=== PATIENT | male | born 1995 | race Two or more races ===

== ENCOUNTER 2025-01-25 16:33 | Inpatient (IN) | payer MEDICAID, OTHER ==
[~2025-01-25] VITALS: Ht 170.2 cm; Wt 75.2 kg
[2025-01-25 17:03] LABS: Hematocrit 47.3 % (41.0-53.0); Hemoglobin 16.7 g/dL (13.5-17.5); Mean Corpuscular Hemoglobin 32.5 pg (28.0-32.0); Mean Corpuscular Volume 91.8 fL (80.0-100.0); Nucleated Red Blood Cells % 0.0 %
--- NOTE | 2025-01-25 17:06 | ED.PDOC ---
Psychiatric HPI Comments HPI: 29 y/o M, YESSICA, presents to the ED for suspected suicide attempt. EMS reports, patient is coming from home where he reports drinking and half a bottle of rubbing alcohol between yesterday (01/24/25) and today (01/25/25) in an attempt to harm himself. Patient reports, having previous suicidal attempts in the past. Upon arrival to the ED, patient denies any thoughts or feelings of wanting to harm himself. Patient denies homicidal ideation, auditory hallucinations, or visual hallucinations. No other symptoms or modifying factors present at this time. Patient later however denies any suicidal ideation. Patient also states he took one or two pills of some medicine that he was prescribed but he does not know the name of. Poison control was contacted immediately. Initial Vitals BP: 142/85 HR:126 RR:16 O2: 97% Temp:98.6 Past Medical History: SELF HARM, DEPRESSION, ANXIETY Past Surgical History: DENIES ANY Social History: smoking, and drug use. Medications: DENIES ANY Allergies: NKA HPI: Poor Historian. REVIEW OF SYSTEMS: CONSTITUTIONAL: Denies acute: fever, diaphoresis, chills, HEAD: Denies acute: headache, photophobia Eyes: Denies acute: Double vision, vision loss, eye pain, eye discharge. EARS: Denies acute: tinnitus, hearing loss, ear discharge, ear pain, THROAT: Denies acute: sore throat, swelling, difficulty swallowing , pain with swallowing, change in voice. NECK: Denies acute: neck pain, neck swelling, stiff neck. HEART: Denies acute : chest pain, palpitations, LUNGS: Denies acute: SOB, wheezing, cough, hemoptysis ABDOMEN: Denies acute: abdominal pain, Nausea, Vomiting, diarrhea, melena , hematemesis, hematochezia SKIN: Denies acute: rash, redness, lesions, itchiness. EXTREMITIES: Denies acute: calf pain, numbness, tingling, weakness, denies pain in extremity. Denies acute: Low back pain. Neuro: Denies acute: focal neurological deficit, motor or sensory focal neurological deficit, tremors, seizure like activity, confusion, dizziness, change in mental status, loss of bowel or bladder function, cauda equina like symptoms. : Denies acute: dysuria, hematuria, flank pain, increase in urinary frequency. PSYCH: Denies acute: hallucination, suicidal ideation, homicidal ideation. FEMALE: Denies acute: abnormal vaginal bleeding, foul odor, unusual discharge. PHYSICAL EXAM: General: -----mild---acute distress, awake and alert. Head: normocephalic, atraumatic. Neck: supple, trachea is midline, no swelling. Throat: Normal phonation. Eyes:, no erythema, no purulent discharge, no proptosis, no icterus. Heart: regular tachycardia, no significant murmur appreciated. Lungs: no apparent respiratory distress, Able to speak in full sentences. No wheezing, no rhonchi, no crackles. No stridors Clear to auscultation bilaterally. Abdomen: non tender to palpation, non distended, soft, no guarding, no rebound, + bowel sounds. Neuro: Awake, Alert, oriented to name, self, situation, follows commands GCS=15. Speech is normal. Skin: no petechia, no purpura, no cyanosis, non-pale, not jaundice. Lower extremities: --no - Pitting edema no deformity, no focal swelling, no calf TTP. Makes eye contact. moves all four extremities. Face: no apparent facial droop. Ambulating in the ED independently. Ears: Normal appearing TM b/l, Stroke: finger to nose cerebellar testing is intact. No pronator drift. 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 Although this document has been carefully reviewed, there might still be some phonetic and typographical errors. Occasional wrong-word or "sound-alike" substitutions may have occurred due to the inherent limitations of voice recognition software. These areas are purely typographical due to imperfections of the software programs and do not reflect any compromise in the patient's medical care. Please read the chart carefully and recognize, using context, where these substitutions have occurred. Chief Complaint: Suicidal Time Seen by MD: 16:30 Reviewed Notes: Nurses Notes, Medications, Allergies Information Source: Patient Mode of Arrival: EMS Severity: Able to Care for Self Severity of Pain: None Severity of Mental Status: Moderate Severity of Symptoms: Moderate Timing: Days Duration: Since onset Prehospital treatment: None Presents with: Suicidal Ideation Attempt: Ingestion Ingestion: Intentional, ETOH Circumstance: None Current substance abuse: ETOH Stressors: None History of: Depression, Anxiety, Suicidal Attempt Quality: None Associated signs and symptoms: None Was a procedure done? Was a procedure done?: No Psych Differential Dx Psych. Differential Dx: Anxiety, Depression, Suicidal Suicidal Differential Dx: Alcohol Abuse, Anxiety, Bipolar Disorder, Conversion Disorder, Depression, Homicidal, Panic Disorder, Personality Disorder, Schizoprenia, Substance Abuse Intoxication Differential Dx: Alcohol Withdraw Syndrome, Delerium Tremens, Hallucinations, Seizures, Anticholinergic Poisoning, Drug-Induced Psychosis, Electrolyte Imbalance, Encephalopathy, Intoxication, Substance Abuse Disorder X-Ray, Labs, Meds, VS Vital Signs Date Time Temp Pulse Resp B/P (MAP) Pulse Ox O2 Delivery O2 Flow Rate FiO2 01/26/25 00:00 84 18 145/86 (105) 01/25/25 22:00 75 19 132/64 (86) 98 01/25/25 21:24 79 01/25/25 20:28 82 01/25/25 20:00 98.0 82 17 155/74 (101) 97 98.0 01/25/25 20:00 80 17 97 Room Air* 0 21 01/25/25 18:28 142 01/25/25 16:52 98.6 126 16 142/85 (104) 97 98.6 Lab Test 01/25/25 21:08 01/25/25 19:46 01/25/25 19:39 01/25/25 17:53 Range/Units Lactic Acid Level 1.2 2.7 *H 0.4-2.0 mmol/L White Blood Count 16.3 H 4.4-10.8 10^3/uL Red Blood Count 5.02 4.5-5.90 10^6/uL Hemoglobin 16.0 13.5-17.5 g/dL Hematocrit 45.9 41.0-53.0 % Mean Corpuscular Volume 91.5 80.0-100.0 fL Mean Corpuscular Hemoglobin 31.9 28.0-32.0 pg Mean Corpuscular Hemoglobin Concent 34.9 32.0-36.0 g/dL Red Cell Distribution Width 13.1 11.8-14.3 % Platelet Count 205 140-450 10^3/uL Mean Platelet Volume 7.6 6.9-10.8 fL Neutrophils (%) (Auto) 81.3 H 37.0-80.0 % Lymphocytes (%) (Auto) 14.3 10.0-50.0 % Monocytes (%) (Auto) 4.3 0.0-12.0 % Eosinophils (%) (Auto) 0.0 0.0-7.0 % Basophils (%) (Auto) 0.1 0.0-2.0 % Neutrophils # (Auto) 13.2 H 1.6-8.6 10 ^3/uL Lymphocytes # (Auto) 2.3 0.4-5.4 10 ^3/uL Monocytes # (Auto) 0.7 0-1.3 10 ^3/uL Eosinophils # (Auto) 0 0-0.8 10 ^3/uL Basophils # (Auto) 0 0-0.2 10 ^3/uL Nucleated Red Blood Cells 0.1 % Sodium Level 142 136-145 mmol/L Potassium Level 2.8 L 3.5-5.1 mmol/L Chloride Level 105 98-107 mmol/L Carbon Dioxide Level 26 20-31 mmol/L Anion Gap 11 5-15 Blood Urea Nitrogen 9 9-23 mg/dL Creatinine 1.33 H 0.700-1.30 mg/dL Glomerular Filtration Rate Calc 73 >90 mL/min BUN/Creatinine Ratio 6.8 L 10.0-20.0 Serum Glucose 114 H 74-106 mg/dL Calcium Level 9.2 8.7-10.4 mg/dL Total Bilirubin 0.8 0.2-1.0 mg/dL Aspartate Amino Transferase (AST) 24 13-40 U/L Alanine Aminotransferase (ALT) 26 7-40 U/L Alkaline Phosphatase 130 H 46-116 U/L Troponin I High Sensitivity 7 7 </=54 ng/L Total Protein 6.6 5.7-8.2 g/dL Albumin 4.1 3.2-4.8 g/dL Serum Osmolality 324 H 278-298 mOsm/kg Test 01/25/25 17:00 01/25/25 16:45 Range/Units Urine Color Yellow Yellow Urine Clarity Turbid H Clear Urine pH 6.0 5.0-9.0 Urine Specific [place] 1.033 1.001-1.035 Urine Protein 2+ H Negative Urine Ketones 1+ H Negative Urine Blood 3+ H Negative /uL Urine Nitrite Negative Negative Urine Bilirubin Negative Negative Urine Urobilinogen 3 H Negative mg/dL Urine Leukocyte Esterase Negative Negative /uL Urine RBC 74 0 - 3 /hpf Urine Microscopic WBC 1 0-3 /HPF Urine Squamous Epithelial Cells Few <5 /hpf Urine Amorphous Crystals Few None Seen /hpf Urine Bacteria None seen None Seen /hpf Urine Hyaline Casts Few 0 - 2 /lpf Urine Mucus Moderate None Seen Urine Glucose 1+ H Normal mg/dL Urine Opiates Screen Neg NEGATIVE Urine Fentanyl Screen Neg NEGATIVE Urine Barbiturates Screen Neg NEGATIVE Urine Phencyclidine Screen Neg NEGATIVE Urine Amphetamines Screen Neg NEGATIVE Urine Benzodiazepines Screen Neg NEGATIVE Urine Cocaine Screen Neg NEGATIVE Urine Cannabinoids Screen Pos NEGATIVE White Blood Count 15.1 H 4.4-10.8 10^3/uL Red Blood Count 5.15 4.5-5.90 10^6/uL Hemoglobin 16.7 13.5-17.5 g/dL Hematocrit 47.3 41.0-53.0 % Mean Corpuscular Volume 91.8 80.0-100.0 fL Mean Corpuscular Hemoglobin 32.5 H 28.0-32.0 pg Mean Corpuscular Hemoglobin Concent 35.4 32.0-36.0 g/dL Red Cell Distribution Width 13.1 11.8-14.3 % Platelet Count 208 140-450 10^3/uL Mean Platelet Volume 7.6 6.9-10.8 fL Neutrophils (%) (Auto) 83.7 H 37.0-80.0 % Lymphocytes (%) (Auto) 12.1 10.0-50.0 % Monocytes (%) (Auto) 4.0 0.0-12.0 % Eosinophils (%) (Auto) 0.0 0.0-7.0 % Basophils (%) (Auto) 0.2 0.0-2.0 % Neutrophils # (Auto) 12.7 H 1.6-8.6 10 ^3/uL Lymphocytes # (Auto) 1.8 0.4-5.4 10 ^3/uL Monocytes # (Auto) 0.6 0-1.3 10 ^3/uL Eosinophils # (Auto) 0 0-0.8 10 ^3/uL Basophils # (Auto) 0 0-0.2 10 ^3/uL Nucleated Red Blood Cells 0.0 % Sodium Level 142 136-145 mmol/L Potassium Level 2.9 L 3.5-5.1 mmol/L Chloride Level 101 98-107 mmol/L Carbon Dioxide Level 28 20-31 mmol/L Anion Gap 13 5-15 Blood Urea Nitrogen 13 9-23 mg/dL Creatinine 1.54 H 0.700-1.30 mg/dL Glomerular Filtration Rate Calc 61 >90 mL/min BUN/Creatinine Ratio 8.4 L 10.0-20.0 Serum Glucose 155 H 74-106 mg/dL Lactic Acid Level 4.4 *H 0.4-2.0 mmol/L Calcium Level 10.2 8.7-10.4 mg/dL Magnesium Level 2.0 1.6-2.6 mg/dL Total Bilirubin 0.6 0.2-1.0 mg/dL Aspartate Amino Transferase (AST) 28 13-40 U/L Alanine Aminotransferase (ALT) 30 7-40 U/L Alkaline Phosphatase 144 H 46-116 U/L Troponin I High Sensitivity 6 </=54 ng/L Total Protein 7.0 5.7-8.2 g/dL Albumin 4.4 3.2-4.8 g/dL Salicylates Level < 3.0 -30 mg/dL Acetaminophen Level < 2.0 L 10.0-20.0 UG/ML Plasma/Serum Blood Alcohol < 3.0 <10 mg/dL Microbiology Date/Time Source Procedure Growth Status 01/25/25 21:10 Blood Blood Culture - Preliminary NO GROWTH AFTER 48 HOURS OF INCUBATION. Resulted 01/25/25 21:08 Blood Blood Culture - Preliminary NO GROWTH AFTER 48 HOURS OF INCUBATION. Resulted [facility] [id number] [place] [address] Ph: [phone] DIAGNOSTIC IMAGING Diagnostic Imaging Report : [id number] Signed PATIENT: Cleveland Batres ACCT: [id number] UNIT: [id number] : 1995 LOC: ER ROOM / BED: / AGE / SEX: 29 / M ADM STATUS: REG ER SERVICE [id number] ORDERING PHYSICIAN: KEATON FOREMAN DO PROCEDURE(s): CXRP - CHEST PORTABLE REASON: suicide attempt, overdose ORDER NUMBER(s): [id number], ACCESSION NUMBER(s): [id number] CHEST RADIOGRAPH Indication: suicide attempt, overdose Technique: Single frontal view of the chest was obtained Comparison: None FINDINGS: Lines and Tubes: None Lungs: No focal consolidation. Questionable 11 mm nodule left lower lung field consider lateral chest x-ray may represent granuloma. Pleura: No effusion. No pneumothorax. Cardiomediastinal contours: Unremarkable Bones: No acute osseous abnormality. IMPRESSION: 1. Questionable 10-11 mm nodule retrocardiac area left lower lobe may represent granuloma. Consider lateral chest x-ray. ATED BY: MAMI PRINGLE Jr., DO DICTATED DATE/TIME: 01/25/251908 SIGNED BY: MAMI PRINGLE Jr., SIGNED DATE/TIME: 01/25/251908 CC: Time of 1ST Reevaluation: 17:00 Reevaluation 1ST: Unchanged Patient Education/Counseling: Diagnosis, Treatment Family Education/Counseling: No Family Present Comments Patient presented with the above HPI.--possible suicide attempt and toxic ingestion----workup was initiated. patient was found with the above mentioned diagnosis. the following medications were ordered: please refer to order lists of meds and tests obtained by myself Dr. Foreman. Patient ED course and VS have been stabilized. Patient has been reassessed in the ED and remained in a stable condition. Patient has been observed in the ED adequate length of time to insure impr ovement/stability. Escalation of care considered: Consideration of escalation to observation or admission Poison control was consulted initially and updated later with the findings. Poison control signed off on the patient. Despite fluid hydration patient continues to have leukocytosis of unknown etiology and did not look clinically stable. social staff worker and tele psych consult were placed. Patient was ADMITTED to the medicine team for further evaluation and treatment of their presentation. All the reports of any imaging studies that were ordered by myself were reviewed by myself. Departure 1 Departure Time of Disposition: 21:29 Impression: Primary Impression: Suicide attempt Additional Impressions: Toxic effect of rubbing alcohol Hypokalemia Leukocytosis Thyroid disease Disposition: ADMITTED INPATIENT Admit to: Tele Condition: Guarded e-Prescriptions Quetiapine Fumerate (Seroquel) 50 Mg Tab 1 TAB PO QPM for 30 Days, #30 TAB Prov: GURDEEP CORDOVA RESIDENT 01/27/25 Discharged With: Self Critical Care Note Critical Care Time?: Yes (55 min-critical care time only) I personally scribed for KEATON FOREMAN DO ([email or web address]) on 01/25/25 at 17:06. Electronically submitted by Catrina López ([email or web address]). I personally scribed for KEATON FOREMAN DO ([email or web address]) on 01/25/25 at 17:38. Electronically submitted by Catrina López ([email or web address]). I personally scribed for KEATON FOREMAN DO ([email or web address]) on 01/25/25 at 17:42. Electronically submitted by Catrina López ([email or web address]). I personally scribed for KEATON FOREMAN DO ([email or web address]) on 01/26/25 at 00:07. Electronically submitted by Otto Bates [email or web address]). KEATON FOREMAN DO Jan 25, 2025 17:06
[2025-01-25] MEDS: SODIUM CHLORIDE 0.9% 1,000 ML IV ONE ×3 (17:14→18:15)
[2025-01-25 17:20] LABS: Alanine Aminotransferase 30 U/L (7-40); Albumin 4.4 g/dL (3.2-4.8); Anion Gap 13 (5-15); BUN/Creatinine Ratio 8.4 (10.0-20.0); Bilirubin, Total 0.6 mg/dL (0.2-1.0); Blood Urea Nitrogen 13 mg/dL (9-23); Calcium 10.2 mg/dL (8.7-10.4); Carbon Dioxide 28 mmol/L (20-31); Chloride 101 mmol/L (98-107); Magnesium 2.0 mg/dL (1.6-2.6); Sodium 142 mmol/L (136-145); Total Protein 7.0 g/dL (5.7-8.2)
[2025-01-25 17:23] LABS: Alkaline Phosphatase 144 U/L (46-116); Glucose 155 mg/dL (74-106); Potassium 2.9 mmol/L (3.5-5.1)
[2025-01-25 17:25] LABS: Acetaminophen < 2.0 UG/ML (10.0-20.0); Salicylate < 3.0 mg/dL (-30)
[2025-01-25 17:33] LABS: Lactic Acid w/Reflex 4.4 mmol/L (0.4-2.0)
[2025-01-25 17:41] LABS: Amphetamine Screen, Urine Neg (NEGATIVE); Barbiturate Scree,Urine Neg (NEGATIVE); Benzodiazephine Screen, Urine Neg (NEGATIVE); Cannabinoid Screen, Urine Pos (NEGATIVE); Cocaine Screen, Urine Neg (NEGATIVE); Opiate Scree,Urine Neg (NEGATIVE); Phencyclidine Screen, Urine Neg (NEGATIVE); Urine Amorphous Crystal FEW /hpf (None Seen); Urine Protein, UAD 2+ (Negative)
--- NOTE | 2025-01-25 19:11 | DVH ---
CHEST RADIOGRAPH Indication: suicide attempt, overdose Technique: Single frontal view of the chest was obtained Comparison: None FINDINGS: Lines and Tubes: None Lungs: No focal consolidation. Questionable 11 mm nodule left lower lung field consider lateral chest x-ray may represent granuloma. Pleura: No effusion. No pneumothorax. Cardiomediastinal contours: Unremarkable Bones: No acute osseous abnormality. IMPRESSION: 1. Questionable 10-11 mm nodule retrocardiac area left lower lobe may represent granuloma. Consider l ateral chest x-ray.
--- NOTE | 2025-01-25 19:11 | ECG ---
[facility] Test Date: 2025-01-25 Test Time: 18:28:40 Pat Name: SUZANNA ABARCA Department: ED Room: 0219T Gender: M Associate: kadie : 1995 Requested By: KEATON FOREMAN Order Number: [id number] Reading MD: Loyd Mascorro Measurements Intervals [place] Rate: 142 P: 56 HI: 110 QRS: 94 QRSD: 100 T: -70 QT: 305 QTc: 469 Interpretive Statements Sinus tachycardia Borderline right axis deviation Abnormal T, consider ischemia, diffuse leads Borderline ST elevation, anterior leads Electronically Signed On 01-27-2025 19:03:56 PDT by Loyd Mascorro Please click the below link to view image of tracing.
[2025-01-25 19:58] LABS: Hematocrit 45.9 % (41.0-53.0); Hemoglobin 16.0 g/dL (13.5-17.5); Mean Corpuscular Hemoglobin 31.9 pg (28.0-32.0); Mean Corpuscular Volume 91.5 fL (80.0-100.0); Nucleated Red Blood Cells % 0.1 %
[2025-01-25 20:00] VITALS: PULSE 80; RESP 17; O2SAT 97
[2025-01-25 20:23] LABS: Alanine Aminotransferase 26 U/L (7-40); Albumin 4.1 g/dL (3.2-4.8); Anion Gap 11 (5-15); BUN/Creatinine Ratio 6.8 (10.0-20.0); Bilirubin, Total 0.8 mg/dL (0.2-1.0); Calcium 9.2 mg/dL (8.7-10.4); Carbon Dioxide 26 mmol/L (20-31); Chloride 105 mmol/L (98-107); Sodium 142 mmol/L (136-145); Total Protein 6.6 g/dL (5.7-8.2)
[2025-01-25 20:24] LABS: Alkaline Phosphatase 130 U/L (46-116); Blood Urea Nitrogen 9 mg/dL (9-23); Glucose 114 mg/dL (74-106); Potassium 2.8 mmol/L (3.5-5.1)
[2025-01-25] MEDS: cefTRIAXone 1GM/50ML D5W 50 ML IV ONE (21:08)
[2025-01-25] MEDS: POTASSIUM CHL 20 Meq TABLET PO ONE (22:07)
--- NOTE | 2025-01-26 01:31 | DVHHP2 ---
History of Present Illness History of Present Illness Patient is 29-year-old male with a past medical history of depression, anxiety was brought in by EMS due to suicidal attempt with the rubbing alcohol. As per patient and EMS record patient ingested rubbing alcohol on 01/24/25 and on 01/25/2025 in an attempt to hurt himself. As per patient he was feeling anxious and drank half of bottle of rubbing alcohol which could be around 500 mL but not sure. Patient reported he has been feeling depressed since his father 3 years before, feeling depressed, anhedonia, hopeless, helpless, insomnia. Keisha cantu had history of suicidal attempt in the past. On assessment patient denied hurting himself or other people at this moment but he feels hopeless and helpless and anhedonia. Initial lab workup revealed leukocytosis with WBC 15.1, potassium 2.9, serum creatinine 1.54, serum osmolality 324, blood sugar 114, alkaline phosphatase 130, AST ALT within normal limit, UDS positive for c annabinoids, urinalysis negative for UTI, chest x-ray -questionable 11 mm nodule in the retrocardiac area, left lower lobe granuloma. EKG sinus rhythm with QTC prolongation. Past Medical History none Past Social History Patient vapes, occasional alcoholic, use marijuana, lives with mom and grandma Review of Systems Review of Systems Allergy- NKDA Patient was seen today at the bedside. Cardiovascular- deny acute chest pain or shortness of breath or cough or palpitation Respiratory denies cough or short of breath or wheezing Gastrointestinal- denies any rectal bleeding, nausea or vomiting Musculoskeletal-denies acute joint swelling or tenderness or redness Neurological- denies acute dysarthria, dysphagia, change in vision Psychiatry- denies depression or SI or HI Skin- denies acute rash or purpura Allergies: Coded Allergies: NO KNOWN ALLERGIES (Unverified , 01/25/25) Medications Current Medications Medications Dose Ordered Sig/Nita Route Start Time Stop Time Status Last Admin Dose Admin Sodium Chloride 1,000 ml @ 120 mls/hr Q8H20M IV 01/26/25 01:30 UNV Pantoprazole Sodium 40 mg DAILY IV 01/26/25 10:00 UNV Exam Vital Signs Vital Signs Date Time Temp Pulse Resp B/P (MAP) Pulse Ox O2 Delivery O2 Flow Rate FiO2 01/25/25 22:00 75 19 132/64 (86) 98 01/25/25 20:00 98.0 98.0 01/25/25 20:00 Room Air* 0 21 Exam General examination- patient with expressionless face HEENT- PEERLA, no acute nasal discharge Cardiovascular- S1-S2 audible, rate and rhythm regular, no murmur Respiratory- CTAB, no wheeze or rhonchi Gastrointestinal-nontender, bowel sound+. Nondistended Musculoskeletal-no acute joint swelling or tenderness or redness Lower extremity- no leg edema Neurological- cranial nerves intact, no acute dysarthria or dysphagia Psychiatry- denies depression or SI or HI Skin- no acute rash or purpura Labs/Xrays Labs Test 01/25/25 21:08 01/25/25 19:39 01/25/25 17:53 01/25/25 17:00 Range/Units Lactic Acid Level 1.2 0.4-2.0 mmol/L White Blood Count 16.3 H 4.4-10.8 10^3/uL Red Blood Count 5.02 4.5-5.90 10^6/uL Hemoglobin 16.0 13.5-17.5 g/dL Hematocrit 45.9 41.0-53.0 % Mean Corpuscular Volume 91.5 80.0-100.0 fL Mean Corpuscular Hemoglobin 31.9 28.0-32.0 pg Mean Corpuscular Hemoglobin Concent 34.9 32.0-36.0 g/dL Red Cell Distribution Width 13.1 11.8-14.3 % Platelet Count 205 140-450 10^3/uL Mean Platelet Volume 7.6 6.9-10.8 fL Neutrophils (%) (Auto) 81.3 H 37.0-80.0 % Lymphocytes (%) (Auto) 14.3 10.0-50.0 % Monocytes (%) (Auto) 4.3 0.0-12.0 % Eosinophils (%) (Auto) 0.0 0.0-7.0 % Basophils (%) (Auto) 0.1 0.0-2.0 % Neutrophils # (Auto) 13.2 H 1.6-8.6 10 ^3/uL Lymphocytes # (Auto) 2.3 0.4-5.4 10 ^3/uL Monocytes # (Auto) 0.7 0-1.3 10 ^3/uL Eosinophils # (Auto) 0 0-0.8 10 ^3/uL Basophils # (Auto) 0 0-0.2 10 ^3/uL Nucleated Red Blood Cells 0.1 % Sodium Level 142 136-145 mmol/L Potassium Level 2.8 L 3.5-5.1 mmol/L Chloride Level 105 98-107 mmol/L Carbon Dioxide Level 26 20-31 mmol/L Anion Gap 11 5-15 Blood Urea Nitrogen 9 9-23 mg/dL Creatinine 1.33 H 0.700-1.30 mg/dL Glomerular Filtration Rate Calc 73 >90 mL/min BUN/Creatinine Ratio 6.8 L 10.0-20.0 Serum Glucose 114 H 74-106 mg/dL Calcium Level 9.2 8.7-10.4 mg/dL Total Bilirubin 0.8 0.2-1.0 mg/dL Aspartate Amino Transferase (AST) 24 13-40 U/L Alanine Aminotransferase (ALT) 26 7-40 U/L Alkaline Phosphatase 130 H 46-116 U/L Troponin I High Sensitivity 7 </=54 ng/L Total Protein 6.6 5.7-8.2 g/dL Albumin 4.1 3.2-4.8 g/dL Serum Osmolality 324 H 278-298 mOsm/kg Urine Color Yellow Yellow Urine Clarity Turbid H Clear Urine pH 6.0 5.0-9.0 Urine Specific [place] 1.033 1.001-1.035 Urine Protein 2+ H Negative Urine Ketones 1+ H Negative Urine Blood 3+ H Negative /uL Urine Nitrite Negative Negative Urine Bilirubin Negative Negative Urine Urobilinogen 3 H Negative mg/dL Urine Leukocyte Esterase Negative Negative /uL Urine RBC 74 0 - 3 /hpf Urine Microscopic WBC 1 0-3 /HPF Urine Squamous Epithelial Cells Few <5 /hpf Urine Amorphous Crystals Few None Seen /hpf Urine Bacteria None seen None Seen /hpf Urine Hyaline Casts Few 0 - 2 /lpf Urine Mucus Moderate None Seen Urine Glucose 1+ H Normal mg/dL Urine Opiates Screen Neg NEGATIVE Urine Fentanyl Screen Neg NEGATIVE Urine Barbiturates Screen Neg NEGATIVE Urine Phencyclidine Screen Neg NEGATIVE Urine Amphetamines Screen Neg NEGATIVE Urine Benzodiazepines Screen Neg NEGATIVE Urine Cocaine Screen Neg NEGATIVE Urine Cannabinoids Screen Pos NEGATIVE Test 01/25/25 16:45 Range/Units Magnesium Level 2.0 1.6-2.6 mg/dL Salicylates Level < 3.0 -30 mg/dL Acetaminophen Level < 2.0 L 10.0-20.0 UG/ML Plasma/Serum Blood Alcohol < 3.0 <10 mg/dL Assessment/Plan Assessment/Plan Assessment and plan # Suicidal attempt with ingestion of rubbing alcohol -Patient ingested rubbing alcohol twice in the past 2 days -patient alert, oriented, conversant,AAOX4 -serum osmolality 324 -continue IV normal saline as prescribed -pending tele psych consult # GRACIELA likely due to VMN -continue IV normal saline as prescribed -monitor BMP Pending urine sodium, urine creatinine, urine protein creatinine ratio # isopropyl alcohol intoxication/rubbing alcohol intoxication -continue IV normal saline as prescribed -monitor CMP, serum osmolality #Lactic acidosis likely due to isopropyl alcohol ingestion -monitor serum osmolality -continue IV normal saline as prescribed -monitor BMP # hypokalemia -supplemented -monitor BMP # hyper osmolality-likely due to isopropyl alcohol toxicity -continue IV normal saline as prescribed -monitor serum osmolality # depression, Anxiety -continue citalopram as prescribed -pending tele psych consult # substance abuse cannabinoids -UDS positive for cannabinoids -patient was counseled about the effect of substance abuse on health # questionable 11 mm nodule in the retrocardiac area -outpatient follow up with the primary care physician # questionable left lower lobe granuloma -outpatient follow up with the primary care physician Diet-NPO Goals of care, Code status Full code ; discussed with >15 minutes PUD prophylaxis: Pantoprazole DVT prophylaxis: Patient ambulating Plan discussed with Dr. Sierra , nursing staff, Total time spent on patient evaluation, chart review, assessment and plan, discussion discussion >35 minutes Plan discussed with: Patient, Other (RN) My Orders Orders - ARISTIDES PAYTON RESIDENT Procedure Category Date Status Time Admit ADMIT 01/26/25 Transmitted 01:26 Code Status CODE 01/26/25 Transmitted 01:26 Sodium Chloride 0.9% PHA 01/26/25 Logged 01:30 Complete Blood Count LAB 01/27/25 Verified 04:00 Comprehensive LAB 01/27/25 Verified Metabolic Panel 04:00 Npo (Nothing By DIET 01/26/25 Transmitted Mouth) Diet Breakfast Notify Of Changes ALFREDA 01/26/25 In Process From Base 01:26 Crm Solution Architect For ALFREDA 01/26/25 In Process 24 Hours 01:26 Pantoprazole PHA 01/26/25 Logged (Protonix) 01:30 Pantoprazole PHA 01/26/25 Logged (Protonix) 10:00 *Tele Psych Consult CONS 01/26/25 Verified 01:29 Date of Service: Jan 26, 2025 Billing Provider: SAMRA SIERRA MD Common Visit Codes: 90126-ZUXSVGB INP/OBS CARE (HIGH) Secondary Visit Codes: 40295-[id number] CARE PLAN 30 MINUTES ARISTIDES APYTON RESIDENT Jan 26, 2025 01:31
[2025-01-26] MEDS: POTASSIUM CHL 20MEQ/100ML 100 ML IV SCH (02:15)
[2025-01-26] MEDS: CITALOPRAM HYDROBR 20 MG TAB PO ONE (03:44)
[2025-01-26] MEDS: SODIUM CHLORIDE 0.9% 1,000 ML IV SCH (03:44)
[2025-01-26] MEDS: PANTOPRAZOLE 40 MG/10 ML VIAL INJ IV ONE (03:45)
--- NOTE | 2025-01-26 05:47 | ECG ---
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
[2025-01-26] MEDS: POTASSIUM EFFERVESENT TAB 25 MEQ GT ONE (06:50)
[2025-01-26 07:08] LABS: Calcium 9.6 mg/dL (8.7-10.4); Chloride 106 mmol/L (98-107); Potassium 3.6 mmol/L (3.5-5.1); Sodium 144 mmol/L (136-145)
[2025-01-26 07:09] LABS: Anion Gap 8 (5-15); Carbon Dioxide 30 mmol/L (20-31)
[2025-01-26 07:14] LABS: BUN/Creatinine Ratio 6.3 (10.0-20.0); Glucose 88 mg/dL (74-106)
[2025-01-26 07:15] LABS: Magnesium 2.1 mg/dL (1.6-2.6)
[2025-01-26 07:18] LABS: Blood Urea Nitrogen 8 mg/dL (9-23)
[2025-01-26 08:00] VITALS: PULSE 72; RESP 18; O2SAT 99
[2025-01-26] MEDS: CITALOPRAM HYDROBR 20 MG TAB PO SCH (11:28)
[2025-01-26] MEDS: PANTOPRAZOLE 40 MG/10 ML VIAL INJ IV SCH (11:29)
--- NOTE | 2025-01-26 16:25 | DVHPNRES ---
Progress Note Date Seen: Jan 26, 2025 Resident Creating Document: DORA LU RESIDENT Has the PT tested + for MRSA If YES, has PT been informed?: No Medical Necessity Reason Pt with a Central, PICC or Fol: No Subjective Review of Systems Patient is a 29-year-old male with prior history of depression and anxiety who presented to the ED via EMS with chief complaint of altered mental status secondary to ingestion of isopropyl alcohol. Patient states that he was drinking with friends for 2 days when they ran out of alcohol and drank approximately half a 1 L bottle of isopropyl alcohol over a 2 day period aiming to get intoxicated. Patient states that last night began to present dizziness, an episode of bloody vomit, and abdominal pain in the epigastrium described as sharp, intensity of 6/10, with no aggravating no relieving factors. He denied persistent vomiting, chest pain, palpitation, fever, chills, diarrhea, and bloody stools. Additionally, patient denied attempt to hurt himself, attempts at suicide, or suicidal ideation. Labs reveal CBCs at 15.1, lactic acid 4.4, potassium 2.9, serum creatinine at 1.54 , serum osmolality at 324, serum alcohol level <3, blood sugar 114, alkaline phosphatase 130, AST and ALT within normal limits, and urine tox screen positive for cannabinoids. 12 lead EKG performed in ED significant for prolongation of QTC, troponins negative. Chest x-ray reveals questionable 10-11 mm nodule in retrocardiac area left lower lobe which may represent granuloma. Patient started on IV fluids and IV potassium and was admitted for further workup and monitoring. Patient seen at bedside. Patient states that he has nausea, abdominal pain, and back pain. Denies further episodes of vomiting. Patient reiterates no intention of harming himself, nor committing suicide. Additionally states that prior to the current binge, he was sober for few months. On exam, patient presents pain to palpation in the epigastrium. Follow-up labs WBCs 16.3, potassium 3.6, lactic acid 1.2, Creatinine 1.26, osmolarity 330, AST and ALT still within normal range, and alkaline phosphatase 144. Patient will continue on IV fluids and will be monitored for symptoms of alcohol withdrawal. Currently pending tele psych consultation. Review of systems: Constitutional: Denies weight loss, fever and chills. HEENT: Denies changes in vision and hearing. Respiratory: Denies shortness of breath and cough Cardiovascular: Denies chest discomfort or palpitations GI: Refers abdominal pain Denies abdominal distention, diarrhea : Denies dysuria and urinary frequency. Musculoskeletal: Reports back pain Skin: Denies rash and pruritus. Neurological: Refers dizziness, denies headache vision or hearing problems Objective vital signs Vital Sign Date Time Temp Pulse Resp B/P (MAP) Pulse Ox O2 Delivery O2 Flow Rate FiO2 01/26/25 12:30 70 18 129/75 (93) 99 01/26/25 08:00 Room Air* 0 21 01/26/25 08:00 98.0 98.0 Total Intake and Output 01/25/25 01/25/25 01/26/25 15:00 23:00 07:00 Intake Total 2050 ml Balance 2050 ml medications Current Medications Medications Dose Ordered Sig/Nita Route Start Time Stop Time Status Last Admin Dose Admin Sodium Chloride 1,000 ml @ 120 mls/hr Q8H20M IV 01/26/25 01:30 01/26/25 11:29 120 MLS/HR Pantoprazole Sodium 40 mg DAILY IV 01/26/25 10:00 01/26/25 11:29 40 MG Citalopram Hydrobromide 40 mg DAILY PO 01/26/25 10:00 01/26/25 11:28 40 MG Examination General: The patient alert and oriented in person place and time. Patient following commands HEENT: Normocephalic, atraumatic, moist mucous membrane Respiratory/pulmonary: Clear lungs bilaterally, vesicular murmurs present in almost all lung flood, no associated crackles or wheezes. Abdomen: Abdomen nondistended, pain to palpation in epigastrium, no palpable masses. Extremities: there is no peripheral edema present at the lower extremities. Peripheral pulses 3+ radial right, 3+ radials soft. 3+ dorsalis pedis right. 3+ dorsalis pedis left Skin: No rashes or pruritus Neurological: Intact cranial nerves with no focal neurologic deficits laboratory and microbiology Laboratory Tests 01/26/25 06:32 01/25/25 19:39 Test 01/26/25 06:32 Range/Units Serum Glucose 88 74-106 mg/dL Problem List/Assessment/Plan Problem List/Assessment/Plan Assessment and plan: Acute toxic metabolic encephalopathy, likely due to isopropyl alcohol ingestion Intoxication due to isopropyl alcohol Lactic acidosis secondary to isopropyl alcohol ingestion Leukocytosis likely reactive -IV fluids -Telepsych consult -patient denies suicide attempt GRACIELA likely due to VMN -IV fluids Hypokalemia, 2.9 -potassium IV -potassium p.o. 25 mEq Depression, anxiety -Citalopram p.o. 40 mg 10-11 mm nodule and retrocardiac area, possible granuloma -incidental finding Patient will be taken off NPO, will be started on clear liquid diet. GI prophylaxis: Protonix IV 40 mg Case discussed with Dr. Diaz. Goals of care discussed with patient for 15 minutes, who states he understands and agrees. Plan discussed with: Patient DORA LU RESIDENT Jan 26, 2025 16:25
[2025-01-26 19:43] VITALS: BP 136/75; PULSE 54; PULSE 56; RESP 18; TEMP 97.8; O2SAT 100; O2SAT 95
[2025-01-26 20:00] VITALS: PULSE 56; PULSE 58; RESP 18; O2SAT 95
[2025-01-26] MEDS ORDERED: ESCI20TA PO (20:46)
[2025-01-26 21:00] VITALS: BP 137/72; PULSE 58; RESP 18; TEMP 97.8; O2SAT 96
[2025-01-26 21:36] LABS: Protein, Urine 15.5 mg/dL (1-14)
[2025-01-27] MEDS: ACETAMINOPHEN 325 MG TAB PO PRN (00:04)
[2025-01-27 05:00] VITALS: BP 130/77; PULSE 54; RESP 18; TEMP 98.7; O2SAT 98
[2025-01-27 07:13] LABS: Alanine Aminotransferase 33 U/L (7-40); Albumin 3.7 g/dL (3.2-4.8); Alkaline Phosphatase 107 U/L (46-116); Anion Gap 7 (5-15); BUN/Creatinine Ratio 7.5 (10.0-20.0); Bilirubin, Total 1.0 mg/dL (0.2-1.0); Blood Urea Nitrogen 9 mg/dL (9-23); Calcium 9.5 mg/dL (8.7-10.4); Carbon Dioxide 28 mmol/L (20-31); Chloride 107 mmol/L (98-107); Glucose 77 mg/dL (74-106); Potassium 3.7 mmol/L (3.5-5.1); Sodium 142 mmol/L (136-145); Total Protein 6.0 g/dL (5.7-8.2)
[2025-01-27 07:49] LABS: Hematocrit 39.3 % (41.0-53.0); Hemoglobin 14.1 g/dL (13.5-17.5); Mean Corpuscular Hemoglobin 32.9 pg (28.0-32.0); Mean Corpuscular Volume 91.8 fL (80.0-100.0); Nucleated Red Blood Cells % 0.1 %
[2025-01-27 08:00] VITALS: PULSE 65
[2025-01-27 09:00] VITALS: BP 134/67; PULSE 67; RESP 18; TEMP 98; O2SAT 99
--- NOTE | 2025-01-27 12:06 | ECG ---
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
[2025-01-27 13:00] VITALS: BP 146/89; PULSE 78; RESP 18; TEMP 97.9; O2SAT 98
--- NOTE | 2025-01-27 14:27 | DVHINCON2 ---
Date of Service if different f: Jan 27, 2025 Consultation ([place]) Labs Laboratory Tests Test 01/25/25 16:45 01/25/25 17:00 01/25/25 21:08 01/26/25 06:32 Salicylates Level < 3.0 mg/dL (-30) Acetaminophen Level < 2.0 UG/ML (10.0-20.0) Plasma/Serum Blood Alcohol < 3.0 mg/dL (<10) Urine Color Yellow (Yellow) Urine Clarity Turbid (Clear) Urine pH 6.0 (5.0-9.0) Urine Specific [place] 1.033 (1.001-1.035) Urine Protein 2+ (Negative) Urine Ketones 1+ (Negative) Urine Blood 3+ /uL (Negative) Urine Nitrite Negative (Negative) Urine Bilirubin Negative (Negative) Urine Urobilinogen 3 mg/dL (Negative) Urine Leukocyte Esterase Negative /uL (Negative) Urine RBC 74 /hpf (0 - 3) Urine Microscopic WBC 1 /HPF (0-3) Urine Squamous Epithelial Cells Few /hpf (<5) Urine Amorphous Crystals Few /hpf (None Seen) Urine Bacteria None seen /hpf (None Seen) Urine Hyaline Casts Few /lpf (0 - 2) Urine Mucus Moderate (None Seen) Urine Glucose 1+ mg/dL (Normal) Urine Opiates Screen Neg (NEGATIVE) Urine Fentanyl Screen Neg (NEGATIVE) Urine Barbiturates Screen Neg (NEGATIVE) Urine Phencyclidine Screen Neg (NEGATIVE) Urine Amphetamines Screen Neg (NEGATIVE) Urine Benzodiazepines Screen Neg (NEGATIVE) Urine Cocaine Screen Neg (NEGATIVE) Urine Cannabinoids Screen Pos (NEGATIVE) Lactic Acid Level 1.2 mmol/L (0.4-2.0) Hemoglobin A1c 4.9 % A1C (<5.7) Serum Osmolality 330 mOsm/kg (278-298) Magnesium Level 2.1 mg/dL (1.6-2.6) Vitamin B12 Level 450 pg/mL (211-911) Vitamin D 25-Hydroxy 49.6 ng/mL (30.0-100) Folic Acid (LAB) 7.91 ng/mL (>5.38) Test 01/26/25 07:40 01/26/25 08:05 01/26/25 21:00 01/27/25 05:55 Troponin I High Sensitivity 10 ng/L (</=54) Thyroid Stimulating Hormone (TSH) 0.15 uIU/mL (0.55-4.78) Urine Creatinine 58.23 mg/dL (30.0-125.0) Urine Protein/Creatinine Ratio 0.27 Urine Sodium 207 mmol/L (40-220) Urine Total Protein 15.5 mg/dL (1-14) White Blood Count 7.4 10^3/uL (4.4-10.8) Red Blood Count 4.28 10^6/uL (4.5-5.90) Hemoglobin 14.1 g/dL (13.5-17.5) Hematocrit 39.3 % (41.0-53.0) Mean Corpuscular Volume 91.8 fL (80.0-100.0) Mean Corpuscular Hemoglobin 32.9 pg (28.0-32.0) Mean Corpuscular Hemoglobin Concent 35.8 g/dL (32.0-36.0) Red Cell Distribution Width 13.1 % (11.8-14.3) Platelet Count 132 10^3/uL (140-450) Mean Platelet Volume 8.1 fL (6.9-10.8) Neutrophils (%) (Auto) 59.0 % (37.0-80.0) Lymphocytes (%) (Auto) 34.8 % (10.0-50.0) Monocytes (%) (Auto) 5.5 % (0.0-12.0) Eosinophils (%) (Auto) 0.3 % (0.0-7.0) Basophils (%) (Auto) 0.4 % (0.0-2.0) Neutrophils # (Auto) 4.3 10 ^3/uL (1.6-8.6) Lymphocytes # (Auto) 2.6 10 ^3/uL (0.4-5.4) Monocytes # (Auto) 0.4 10 ^3/uL (0-1.3) Eosinophils # (Auto) 0 10 ^3/uL (0-0.8) Basophils # (Auto) 0 10 ^3/uL (0-0.2) Nucleated Red Blood Cells 0.1 % Sodium Level 142 mmol/L (136-145) Potassium Level 3.7 mmol/L (3.5-5.1) Chloride Level 107 mmol/L (98-107) Carbon Dioxide Level 28 mmol/L (20-31) Anion Gap 7 (5-15) Blood Urea Nitrogen 9 mg/dL (9-23) Creatinine 1.20 mg/dL (0.700-1.30) Glomerular Filtration Rate Calc 83 mL/min (>90) BUN/Creatinine Ratio 7.5 (10.0-20.0) Serum Glucose 77 mg/dL (74-106) Calcium Level 9.5 mg/dL (8.7-10.4) Total Bilirubin 1.0 mg/dL (0.2-1.0) Aspartate Amino Transf (AST/SGOT) 36 U/L (13-40) Alanine Aminotransferase (ALT/SGPT) 33 U/L (7-40) Alkaline Phosphatase 107 U/L (46-116) Total Protein 6.0 g/dL (5.7-8.2) Albumin 3.7 g/dL (3.2-4.8) Microbiology Date/Time Source Procedure Growth Status 01/25/25 21:10 Blood Blood Culture - Preliminary NO GROWTH AFTER 24 HOURS OF INCUBATION. Resulted Side effects of medications: No Appearance: Stated age, Disheveled Psychomotor activity: Lethargic Behavioral: Cooperative Eye contact: Avoids Speech: Soft Affect: Flat Mood: Neutral Thought processes: Linear/Goal-directed Thought content: WNL Suicidal ideations: Absent Homicidal ideations: Absent Orientation: Person, Place, Time, Situation Memory intact: Recent Intellect: Average Abstractability: WNL Concentration: Adequate Attention: Adequate Judgement: WNL Insight: Poor Vitals Vital Signs Date Time Temp Pulse Resp B/P (MAP) Pulse Ox O2 Delivery O2 Flow Rate FiO2 01/27/25 08:00 Room Air* 0 21 01/27/25 05:00 98.7 54 18 130/77 (94) 98 98.7 Current medications Current Medications Medications Dose Ordered Sig/Nita Route Start Time Stop Time Status Last Admin Dose Admin Sodium Chloride 1,000 ml @ 120 mls/hr Q8H20M IV 01/26/25 01:30 01/27/25 10:31 120 MLS/HR Pantoprazole Sodium 40 mg DAILY IV 01/26/25 10:00 01/27/25 10:25 40 MG Citalopram Hydrobromide 40 mg DAILY PO 01/26/25 10:00 01/27/25 10:26 40 MG Acetaminophen 650 mg Q6HP PRN PO 01/26/25 23:15 01/27/25 00:04 650 MG Medication adjusted: No Diagnosis: MDD, unspecified anxiety, alcohol abuse disorder Plan : This is a 29-year-old male with hx of depression, anxiety and alcohol abuse, presents here after drinking isopropyl alcohol Patient presently denies suicidal/homicidal ideation. He would benefit from outpatient follow up for medication management and therapy. Continue current psychotropic medications recommend to add seroquel 50mg po qhs for psychotic symptoms History of Present Illness Reason for Consult : psychiatric evaluation and history of depression and anxiety HPI : This is a 29-year-old male present here from home via ambulance after ingesting isopropyl alcohol. Patient is evaluated via telepsychiatry. He reports hx of depression, anxiety and alcohol abuse. He reports alcohol abuse for over 10 years but sober for 6months. he reports his friends picked him up and he stayed with them for about one week and they were drinking a lot of alcohol after being sober 6 months. He reports they ran out of alcohol and he began drinking rubbing alcohol x2 days. He denies suicide attempt. He reports drinking the rubbing alcohol, about 1/2 bottle because he was having a lot of anxiety and trying to "block anxiety." He denies prior use of rubbing alcohol. He presents with flat affect, but denies feeling depressed, anhedonia or hopelessness. He reports poor sleep. Appetite varies. He reports having a lot of neck, chest pain, and feeling uncomfortable. He denies suicidal/homicidal ideation. He reports auditory visual hallucinations with withdrawals symptoms in the past. He denies paranoia. Past Psychiatric History : He denies prior psych admissions or holds. He denies prior suicide attempts. He reports hx of cutting in middle school only. He denies current outpatient follow up. He reports use of escitalopram 20mg prescribed by his PCP. He denies use for about one week while visiting his friends. He reports, in the past, was helpful for his symptoms. Past Medical History : He denies Social History : He lives with family, mom, grandmother, and brother. he is employed at [employer]. He reports father and mother with hx of depression and anxiety. He reports alcohol abuse history. he reports use of marijuana daily. He denies other substance use. RC MARINA DNP Jan 27, 2025 14:27
[2025-01-27 16:39] VITALS: BP 119/76; PULSE 55; RESP 18; TEMP 98.1; O2SAT 100
[2025-01-27] MEDS ORDERED: QUET50TA PO (18:22)
--- NOTE | 2025-01-27 18:30 | DVHDSRES ---
Discharge Summary Date of Admission Resident Creating Document: DORA LU RESIDENT Jan 26, 2025 at 01:26 Date of Discharge: Jan 27, 2025 Admitting Diagnosis Acute toxic metabolic encephalopathy secondary to ingestion of isopropyl alcohol Labs/Diagnostic Data: Laboratory Results Test 01/27/25 05:55 01/26/25 21:00 01/26/25 08:05 01/26/25 07:40 White Blood Count 7.4 10^3/uL (4.4-10.8) Red Blood Count 4.28 10^6/uL (4.5-5.90) Hemoglobin 14.1 g/dL (13.5-17.5) Hematocrit 39.3 % (41.0-53.0) Mean Corpuscular Volume 91.8 fL (80.0-100.0) Mean Corpuscular Hemoglobin 32.9 pg (28.0-32.0) Mean Corpuscular Hemoglobin Concent 35.8 g/dL (32.0-36.0) Red Cell Distribution Width 13.1 % (11.8-14.3) Platelet Count 132 10^3/uL (140-450) Mean Platelet Volume 8.1 fL (6.9-10.8) Neutrophils (%) (Auto) 59.0 % (37.0-80.0) Lymphocytes (%) (Auto) 34.8 % (10.0-50.0) Monocytes (%) (Auto) 5.5 % (0.0-12.0) Eosinophils (%) (Auto) 0.3 % (0.0-7.0) Basophils (%) (Auto) 0.4 % (0.0-2.0) Neutrophils # (Auto) 4.3 10 ^3/uL (1.6-8.6) Lymphocytes # (Auto) 2.6 10 ^3/uL (0.4-5.4) Monocytes # (Auto) 0.4 10 ^3/uL (0-1.3) Eosinophils # (Auto) 0 10 ^3/uL (0-0.8) Basophils # (Auto) 0 10 ^3/uL (0-0.2) Nucleated Red Blood Cells 0.1 % Sodium Level 142 mmol/L (136-145) Potassium Level 3.7 mmol/L (3.5-5.1) Chloride Level 107 mmol/L (98-107) Carbon Dioxide Level 28 mmol/L (20-31) Anion Gap 7 (5-15) Blood Urea Nitrogen 9 mg/dL (9-23) Creatinine 1.20 mg/dL (0.700-1.30) Glomerular Filtration Rate Calc 83 mL/min (>90) BUN/Creatinine Ratio 7.5 (10.0-20.0) Serum Glucose 77 mg/dL (74-106) Calcium Level 9.5 mg/dL (8.7-10.4) Total Bilirubin 1.0 mg/dL (0.2-1.0) Aspartate Amino Transferase (AST) 36 U/L (13-40) Alanine Aminotransferase (ALT) 33 U/L (7-40) Alkaline Phosphatase 107 U/L (46-116) Total Protein 6.0 g/dL (5.7-8.2) Albumin 3.7 g/dL (3.2-4.8) Urine Creatinine 58.23 mg/dL (30.0-125.0) Urine Protein/Creatinine Ratio 0.27 Urine Sodium 207 mmol/L (40-220) Urine Total Protein 15.5 mg/dL (1-14) Thyroid Stimulating Hormone (TSH) 0.15 uIU/mL (0.55-4.78) Troponin I High Sensitivity 10 ng/L (</=54) Test 01/26/25 06:32 01/25/25 21:08 01/25/25 17:00 01/25/25 16:45 Hemoglobin A1c 4.9 % A1C (<5.7) Serum Osmolality 330 mOsm/kg (278-298) Magnesium Level 2.1 mg/dL (1.6-2.6) Vitamin B12 Level 450 pg/mL (211-911) Vitamin D 25-Hydroxy 49.6 ng/mL (30.0-100) Folic Acid 7.91 ng/mL (>5.38) Lactic Acid Level 1.2 mmol/L (0.4-2.0) Urine Color Yellow (Yellow) Urine Clarity Turbid (Clear) Urine pH 6.0 (5.0-9.0) Urine Specific [place] 1.033 (1.001-1.035) Urine Protein 2+ (Negative) Urine Ketones 1+ (Negative) Urine Blood 3+ /uL (Negative) Urine Nitrite Negative (Negative) Urine Bilirubin Negative (Negative) Urine Urobilinogen 3 mg/dL (Negative) Urine Leukocyte Esterase Negative /uL (Negative) Urine RBC 74 /hpf (0 - 3) Urine Microscopic WBC 1 /HPF (0-3) Urine Squamous Epithelial Cells Few /hpf (<5) Urine Amorphous Crystals Few /hpf (None Seen) Urine Bacteria None seen /hpf (None Seen) Urine Hyaline Casts Few /lpf (0 - 2) Urine Mucus Moderate (None Seen) Urine Glucose 1+ mg/dL (Normal) Urine Opiates Screen Neg (NEGATIVE) Urine Fentanyl Screen Neg (NEGATIVE) Urine Barbiturates Screen Neg (NEGATIVE) Urine Phencyclidine Screen Neg (NEGATIVE) Urine Amphetamines Screen Neg (NEGATIVE) Urine Benzodiazepines Screen Neg (NEGATIVE) Urine Cocaine Screen Neg (NEGATIVE) Urine Cannabinoids Screen Pos (NEGATIVE) Salicylates Level < 3.0 mg/dL (-30) Acetaminophen Level < 2.0 UG/ML (10.0-20.0) Plasma/Serum Blood Alcohol < 3.0 mg/dL (<10) Other Laboratory Tests 01/27/25 05:55 Brief Hx & Hospital Course: Patient is a 29-year-old male with prior history of depression, anxiety, and alcoholism with intermittent sobriety who presented to the ED via EMS with chief complaint of altered mental status secondary to ingestion of isopropyl alcohol. Patient states that he was drinking with friends for 2 days when they ran out of alcohol and drank approximately half a 1 L bottle of isopropyl alcohol over a 2 day period aiming to get intoxicated. Patient stated that on the night of presentation he began to present dizziness, an episode of bloody vomit, and abdominal pain in the epigastrium described as sharp, intensity of 6/10, with no aggravating no relieving factors. He denied persistent vomiting, chest pain, palpitation, fever, chills, diarrhea, and bloody stools. Additionally, patient denied attempt to hurt himself, attempts at suicide, or suicidal ideation. Labs revealed WBCs at 15.1, lactic acid 4.4, potassium 2.9, serum creatinine at 1.54 , serum osmolality at 324, serum alcohol level <3, blood sugar 114, alkaline phosphatase 130, AST and ALT within normal limits, and urine tox screen positive for cannabinoids. 12 lead EKG performed in ED significant for prolongation of QTC, troponins negative. Chest x-ray revealed questionable 10-11 mm nodule in retrocardiac area left lower lobe which may represent granuloma. Patient started on IV fluids and IV potassium and was admitted for further workup and monitoring for symptoms of alcohol withdrawal. On evaluation, after admission patient stated he was nauseous, refering persistence of abdominal pain and back pain, but denied further emetic episodes. On physical examination, patient smelled of isopropyl alcohol and presented pain on palpation of epigastrium. Patient reiterated he had no intention of harming himself, nor committing suicide. Follow-up labs showed WBCs 16.3, potassium 3.6, lactic acid 1.2, Creatinine 1.26, osmolarity 330, AST and ALT still within normal range, and alkaline phosphatase 144. On evaluation today, patient stated he felt better, had improvements in nausea and abdominal pain. Referred back pain, however stated that this was due to a previous injury. CIWA scale was calculated and was 3. CAGE score was 3. 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 Labs today show WBCs 7.4, potassium 3.7, and creatinine 1.20. Vitals were stable. Patient was evaluated by tele-psych who stated that patient was clear for discharge with recommendation to continue current medications and initiate treatment with seroquel. Patient is considered safe for discharge home with recommendation to follow up with PCP in 1-2 weeks and follow up with outpatient psychiatry for continued monitoring. Goals were discussed with the patient who stated he understood. Physical Exam on the day of discharge: General: The patient alert and oriented in person place and time. Patient following commands HEENT: Normocephalic, atraumatic, moist mucous membrane Respiratory/pulmonary: Clear lungs bilaterally, vesicular murmurs present in almost all lung flood, no associated crackles or wheezes. Cardiovascular: Normal rate, normal S1, normal S2 Abdomen: Abdomen nondistended, no pain to palpation in any of the abdominal quadrants, no palpable masses. Extremities: there is no peripheral edema present at the lower extremities. Peripheral pulses 3+ radial right, 3+ radials soft. 3+ dorsalis pedis right. 3+ dorsalis pedis left Skin: No rashes or pruritus. Neurological: Intact cranial nerves with no focal neurologic deficits Counseled on alcohol use cessation for 22 minutes. Goals of care discussed with the patient for 20 minutes. Case discussed with Dr. Pena Consults/Reason for consult Tele-psychiatry for evaluation of patient's anxiety and depression Operations or Procedures CHEST RADIOGRAPH Indication: suicide attempt, overdose Technique: Single frontal view of the chest was obtained Comparison: None FINDINGS: Lines and Tubes: None Lungs: No focal consolidation. Questionable 11 mm nodule left lower lung field consider lateral chest x-ray may represent granuloma. Pleura: No effusion. No pneumothorax. Cardiomediastinal contours: Unremarkable Bones: No acute osseous abnormality. IMPRESSION: 1. Questionable 10-11 mm nodule retrocardiac area left lower lobe may represent granuloma. Consider lateral chest x-ray. Condition at Discharge: Stable Final Diagnosis/Problems List Acute toxic metabolic encephalopathy, likely due to isopropyl alcohol ingestion Suicide attempt, ruled out Intoxication due to isopropyl alcohol, without overdose Lactic acidosis secondary to isopropyl alcohol ingestion Alcohol abuse disorder Leukocytosis, likely reactive GRACIELA likely due to VMN Hypokalemia, resolved Depression, anxiety 10-11 mm nodule and retrocardiac area, possible granuloma Discharge Disposition: Home Discharge Instruct/Medications Diet: Regular Activity: No Restrictions, As Tolerated Follow Up/Referral: Follow up with PCP in 1-2 weeks Follow up with outpatient psychiatry in 1-2 weeks Medications: Citalopram Seroquel Lexapro Scheduled Escitalopram Oxalate (Lexapro), 1 TAB PO DAILY, (Reported) Quetiapine Fumerate (Seroquel), 1 TAB PO QPM Discharge Statement: "Patient was advised to return to the ER or call 911 if any headaches, dizziness, shortness of breath, chest pain, abdominal pain, bleeding, fevers, or worsening of medical condition. Patient was counseled about treatment plan, medications, possible side effects, patientverbalized understanding. All questions were answered to the best of my ability. This discharge took greater then 30 minutes in planning, reviewing documentation, counseling the patient, and discussing with other team members." ASSESSMENT ASSESSMENT Assessment Acute metabolic encephalopathy secondary to ingestion of isopropyl alcohol Addendum Addendum Addendum I was physically present for the kam portions of the service provided to patient by THE RESIDENT. I have reviewed the documentation, discussed the case with resident and agree with the resident's documentation except as noted. Also the patient's clinical case was discussed with the patient's nurse. This medical document was created using an electronic medical record system with computerized dictation system. Although this document has been carefully reviewed, there might still be some phonetic and typographical errors. These areas are purely typographical due to imperfections of the software programs, and do not reflect any compromise in the patient's medical care. Late signature. Date of Service: Jan 27, 2025 Billing Provider: RICHARD PENA MD Common Visit Codes: 80570-WOT/OBS DISCH DAY >30min Secondary Visit Codes: 01223-ERTGN CHNG SMOKING >10MIN (Counseld on alcohol use cessation for 22 minutes), 39012-YNAXTJWT CARE PLAN 30 MINUTES (20 minutes) DORA LU RESIDENT Jan 27, 2025 18:30 RICHARD PENA MD Jan 28, 2025 04:33
[2025-01-28 10:17] LABS: Hepatitis B Surface Antigen Negative (Negative)
[2025-01-28 10:34] LABS: Hepatitis C Antibody Negative (Negative)
== END 2025-01-27 19:25 | disposition home or self-care (01) | DRG 817 ==
LOC: EDBD 16:33 → ER 16:41 → OVERFLOW 01-26 01:26 → TELE-CENTR 01-26 18:50
PROVIDERS: ADMIT Internal Medicine; ATTEND Internal Medicine
DX: T51.2X2A Toxic effect of 2-Propanol, intentional self-harm, initial encounter (principal); N17.0 Acute kidney failure with tubular necrosis; G92.8 Other toxic encephalopathy; E87.20 Acidosis, unspecified; F10.129 Alcohol abuse with intoxication, unspecified; E87.6 Hypokalemia; F32.9 Major depressive disorder, single episode, unspecified; F41.9 Anxiety disorder, unspecified; D72.829 Elevated white blood cell count, unspecified; F17.290 Nicotine dependence, other tobacco product, uncomplicated; E07.9 Disorder of thyroid, unspecified; F12.10 Cannabis abuse, uncomplicated; J84.10 Pulmonary fibrosis, unspecified; Z91.52 Personal history of nonsuicidal self-harm; Z91.51 Personal history of suicidal behavior; Z63.4 Disappearance and death of family member; Y92.89 Other specified places as the place of occurrence of the external cause; Y90.0 Blood alcohol level of less than 20 mg/100 ml
CPT/HCPCS: 36415; 71045; 80048; 80053; 80307; 80320; 80329; 81001; 82306; 82570; 82607; 82746; 83036; 83605; 83735; 83930; 84156; 84300; 84443; 84484; 85025; 86803; 87040; 87340; 93005; 96365; G0378; J2470